=== PATIENT | female | born 1985 | race Caucasian/White ===

== ENCOUNTER 2022-05-31 08:02 | Emergency (ER) | payer OTHER, SELFPAY ==
--- NOTE | 2022-05-31 08:09 | ED.URI ---
HPI - URI/Sore Throat General Stated Complaint: sore throat Source: patient, RN notes reviewed and old records reviewed Mode of arrival: ambulatory Limitations: no limitations History of Present Illness HPI Narrative: 36 year old female who presents to [facility] care with complaints of sore throat, sinus congestion with green drainage, nausea without vomiting, some productive cough, and headache since yesterday. Patient reports that her children have been ill with strep and most recently youngest child tested positive for strep 2 days ago.. Patient reports that she has had COVID immunizations and also flu vaccine.Patient reports no fevers, chills or sweats, denies any body aches. Patient has been taking Becky for sinus congestion and drainage. MD elicited complaint: sore throat and nasal congestion Pertinent past history: sinusitis and seasonal allergies Onset (ago): day(s) (day 2 of symptoms) Consistency: constant Severity: mild Pain scale (0-10): 3 Description of mucous: green Able to tolerate fluids by mouth: Yes Treatments prior to arrival: other (becky) Related Data Home Medications Medication Instructions Recorded Confirmed Becky 180 mg DAILY 05/31/22 05/31/22 cyclosporine 0.05 % eye drops in a 1 drp BID 05/31/22 05/31/22 dropperette (Restasis) Allergies Allergy/AdvReac Type Severity Reaction Status Date / Time amoxicillin Allergy Rash Verified 05/31/22 08:20 Review of Systems Review of Systems: CONSTITUTIONAL: Denies malaise, chills, sweats, or fever. EYES: Denies visual changes, redness, or discharge. ENT: Reports rhinorrhea, congestion, sinus pain,no otalgia positive for sore throat. CARDIOVASCULAR: Denies chest pain, palpitations, or edema. RESPIRATORY: Reports occasional productive cough.? Denies dyspnea. GASTROINTESTINAL: Denies abdominal pain,positive for nausea,no vomiting, diarrhea SKIN: Denies rash or itching. MUSCULOSKELETAL: Denies myalgia. NEUROLOGIC: Reports mild headache . All systems reviewed & are unremarkable except as noted in HPI and below PMFSH Past Medical History Medical History (Updated 05/31/22 @ 08:40 by Holly Bales NP) Dry eyes Seasonal allergies Sinusitis Surgical History Surgical History (Updated 05/31/22 @ 08:27 by Holly Bales NP) No history of previous surgery Social History Social History (Updated 05/31/22 @ 08:27 by Holly Bales NP) Smoking status: Never smoker Alcohol intake: current Alcohol use details: rare social Substance use type: does not use Living arrangements: with family Gender identity (if verbalized by the patient): Female Comments At time of signature, agree with nursing past medical, surgical, social and family history. There is no relevant family history pertinent to the presenting complaint Exam Narrative: GENERAL: Well-appearing, well-nourished, and in no acute distress. HEAD: Normocephalic EYES: PERRLA, conjunctivae clear ENT: Nares clear, turbinates edematous and erythematous, clear to light green discharge. Mucous membranes moist. TM pearly osman with dull light reflex bilaterally; no tragal tenderness. Oropharynx erythematous without lesions. Tonsils not enlarged and without exudate, no drooling, no hoarseness, no trismus, uvula midline. NECK: Supple. No lymphadenopathy CHEST: Clear to auscultation, breath sounds equal. No wheezing, rhonchi, rales, or stridor. No respiratory distress, speaks in full sentences.cough SAO2 100% on room air HEART: Regular rate and rhythm. No murmur heard. SKIN: Warm, dry, no rash. NEURO: Alert and oriented x3. PSYCH: Normal mood and affect Course Course Emergency Course: Patient is aware of diagnosis, understands and agrees to treatment plan.? Anticipatory guidance given.? Patient agrees to follow-up as directed and is aware of reasons to seek care at the emergency department. Portions of this record may have been created with voice
[2022-05-31 08:19] VITALS: BP 96/59; PULSE 71; RESP 16; TEMP 36.8; O2SAT 100
== END 2022-05-31 08:39 | disposition home or self-care (01) ==
PROVIDERS: Emergency Provider Registered Nurse; PCP Internal Medicine
DX: J02.9 Acute pharyngitis, unspecified (principal)
CPT/HCPCS: 87081; 87880; 99213; G0463

== ENCOUNTER 2023-11-20 11:19 | Emergency (ER) | payer OTHER, SELFPAY ==
--- NOTE | ~2023-11-20 | XR_ITS ---
EXAMINATION: XR chest 2V 11/20/2023 11:54 INDICATION: Cough and shortness of breath. Covid. PROCEDURE: 2 view chest COMPARISON: No prior studies for comparison. FINDINGS: The lungs are clear. The cardiomediastinal silhouette is within normal limits. There are no pleural effusions. There is no pneumothorax suspected. IMPRESSION: 1: NO ACUTE CARDIOPULMONARY DISEASE. Reviewed, dictated and finalized at location B.
[2023-11-20 11:34] VITALS: BP 109/71; PULSE 71; RESP 16; TEMP 36.6; O2SAT 100
[2023-11-20 11:35] VITALS: BP 109/71; PULSE 71; RESP 16; TEMP 36.6; O2SAT 100
--- NOTE | 2023-11-20 11:37 | ED.URI ---
HPI - URI/Sore Throat General Chief Complaint: Upper Respiratory Infection Stated Complaint: +COVID Time Seen by Provider: 11/20/23 11:37 Source: patient Mode of arrival: ambulatory Limitations: no limitations History of Present Illness HPI Narrative: 38-year-old female presents with complaint of cough, chest congestion, nasal congestion, fatigue, brain fog for 1 week. Tested positive for COVID 5 days ago. Not taking any [id number] medications to treat her symptoms. Patient states she is very tired, has no energy to take care of her children. Concerned that she may have pneumonia due to continued chest congestion. Denies chest pain and shortness of breath. Afebrile. All systems reviewed and negative except as noted above. Related Data Home Medications Medication Instructions Recorded Confirmed cyclosporine 0.05 % eye drops in a 1 drp BID 05/31/22 11/20/23 dropperette (Restasis) cetirizine 10 mg tablet (Zyrtec) 10 mg PO DAILY 11/20/23 11/20/23 Allergies Allergy/AdvReac Type Severity Reaction Status Date / Time amoxicillin Allergy Rash Verified 11/20/23 11:34 Review of Systems Review of Systems: CONSTITUTIONAL: Denies fever, chills, or sweats. Reports fatigue EYES: Denies visual changes, redness, or discharge. ENT: Denies rhinorrhea, congestion, sore throat, or otalgia. CARDIOVASCULAR: Denies chest pain, palpitations, or edema. RESPIRATORY: Reports cough. Denies dyspnea. GASTROINTESTINAL: Denies abdominal pain, nausea, vomiting, or diarrhea. GENITOURINARY: Denies dysuria or hematuria. SKIN: Denies rash or itching. MUSCULOSKELETAL: Denies back pain, joint pain, or myalgia. NEUROLOGIC: Denies headache, numbness, or weakness. Reports brain fog. PSYCHIATRIC: Denies anxiety or depression. All other systems reviewed are negative, except as documented in HPI. [facility] Past Medical History Medical History (Updated 11/20/23 @ 12:26 by Libia Perdomo NP) Dry eyes Seasonal allergies Sinusitis Surgical History Surgical History (Updated 05/31/22 @ 08:27 by Holly Bales NP) No history of previous surgery Social History Social History (Updated 05/31/22 @ 08:27 by Holly L. Amairani, SUPERVIS[employer]TING [employer]ING) Smoking status: Never smoker Alcohol intake: current Alcohol use details: rare social Substance use type: does not use Living arrangements: with family Gender identity (if verbalized by the patient): Female Comments At time of signature, agree with nursing past medical, surgical, social and family history. There is no relevant family history pertinent to the presenting complaint. Exam Narrative: GENERAL: This is a well-nourished, well-developed patient, patient ill-appearing but in no acute distress. HEAD: normocephalic, atraumatic. EYES: PERRL. Sclera clear/white. Vision is grossly intact. EARS: External ears normal, auditory canals clear and without drainage, TMs normal without perforation. Hearing grossly intact. NOSE: External nose normal with moderate congestion, purulent nasal drainage, erythema swelling to bilateral nares THROAT: Mucous membranes moist, posterior pharynx clear. NECK: Neck supple, non-tender without lymphadenopathy, masses or thyromegaly. CARDIOVASCULAR: Regular rate and rhythm without murmurs, gallops, or rubs. RESPIRATORY: Clear to auscultation. Breath sounds equal bilaterally. No wheezes, rales, or rhonchi. SKIN: warm, Dry, intact with no suspicious lesions or rash, good texture and turgor. NEURO: awake, alert, and oriented to person, place and time. There were no obvious focal neurologic abnormalities. EXTREMITIES: No joint tenderness, effusion, or edema noted. Course Course Level of Care: Express Care Visit Vital Signs Vital signs: Vital Signs Temperature 36.6 C 11/20/23 11:34 Pulse Rate 71 11/20/23 11:34 Respiratory Rate 16 11/20/23 11:34 Blood Pressure 109/71 11/20/23 11:34 Pulse Oximetry 100 11/20/23 11:34 Temperature 36
== END 2023-11-20 11:37 | disposition home or self-care (01) ==
PROVIDERS: Emergency Provider Nurse Practitioner Family; PCP Internal Medicine
DX: J01.90 Acute sinusitis, unspecified (principal); Z86.16 Personal history of COVID-19
CPT/HCPCS: 71046; 99213; G0463

== ENCOUNTER 2023-12-19 07:51 | Outpatient (CLI) | payer OTHER, SELFPAY ==
[2023-12-19 09:03] LABS: Alanine Aminotransferase 22 U/L (6-35); Albumin Level 4.6 g/dL (3.5-5.1); Alkaline Phosphatase 41 U/L (38-126); Anion Gap 8 mmol/L (4-12); Aspartate Amino Transferase 33 U/L (14-36); Bilirubin,Total 0.5 mg/dL (0.2-1.3); Blood Urea Nitrogen 13 mg/dL (7-17); Calcium 8.6 mg/dL (8.4-10.2); Carbon Dioxide 26 mmol/L (22-30); Chloride 102 mmol/L (98-107); Cholesterol 191 mg/dL (0-200); Estimated Glomerular Filt Rate > 60; Glucose 90 mg/dL (65-110); HDL Direct 61 mg/dL; Potassium 3.5 mmol/L (3.4-5.0); Sodium 136 mmol/L (137-145); Triglycerides 65 mg/dL (<150)
[2023-12-19 09:14] LABS: LDL Cholesterol Direct 101 mg/dL
[2023-12-19 10:45] LABS: Hepatitis B Surface Anti Res Negative
== END 2023-12-19 07:52 | disposition home or self-care (01) ==
PROVIDERS: PCP Internal Medicine; Visit Provider Internal Medicine
DX: Z00.00 Encounter for general adult medical examination without abnormal findings (principal); Z13.0 Encounter for screening for diseases of the blood and blood-forming organs and certain disorders involving the immune mechanism; Z13.1 Encounter for screening for diabetes mellitus; Z13.220 Encounter for screening for lipoid disorders; Z13.29 Encounter for screening for other suspected endocrine disorder; Z13.228 Encounter for screening for other metabolic disorders
CPT/HCPCS: 36415; 80053; 80061; 86706

== ENCOUNTER 2024-04-15 16:01 | Emergency (ER) | payer OTHER, SELFPAY ==
[2024-04-15 16:08] VITALS: BP 107/84; PULSE 65; RESP 16; TEMP 36.5; O2SAT 100
--- NOTE | 2024-04-15 16:31 | ED.EAR ---
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 She thought it may help to get some ear plugs, but this provided no relief. She has no URI symptoms or drainage from the ear. She is due to see an ENT specialist at the end of May, but her symptoms are causing her much distress. Related Data Home Medications ?Medication ?Instructions ?Recorded ?Confirmed ?Last Taken ?Type cyclosporine 0.05 % eye drops in a 1 drp EACH EYE BID 05/31/22 04/15/24 Unknown History dropperette (Restasis) cetirizine 10 mg tablet (Zyrtec) 10 mg PO DAILY 11/20/23 11/20/23 Unknown History Allergies Allergy/AdvReac Type Severity Reaction Status Date / Time amoxicillin Allergy Rash Verified 04/15/24 16:15 Review of Systems Review of Systems: CONSTITUTIONAL: Denies body aches, fever, chills, or sweats. EYES: Denies visual changes, redness, or discharge. ENT: Denies rhinorrhea, congestion, sore throat, or otalgia.+ tinnitus, loud sounds in the left ear CARDIOVASCULAR: Denies chest pain, palpitations, or edema. RESPIRATORY: Denies cough or dyspnea. GASTROINTESTINAL: Denies abdominal pain, nausea, vomiting, or diarrhea. GENITOURINARY: Denies dysuria or hematuria. SKIN: Denies rash, itching, or wounds. MUSCULOSKELETAL: Denies back pain, joint pain, or myalgia. NEUROLOGIC: Denies headache, numbness, tingling, or weakness. PSYCH: Denies depression or anxiety. [facility] Past Medical History Medical History Dry eyes Sinusitis Seasonal allergies Surgical History Surgical History No history of previous surgery Social History Social History Smoking status: Never smoker Alcohol intake: current Alcohol use details: rare social Substance use type: does not use Living arrangements: with family Gender identity (if verbalized by the patient): Female Comments At time of signature, I have reviewed and agree with nursing past medical, surgical, social and family history unless otherwise noted. Please see nursing chart for further information. There is no relevant family history pertinent to the presenting complaint Exam Narrative: GENERAL: Well-appearing, well-nourished, and in no acute distress. HEAD: Normocephalic, atraumatic. EYES: EOMI. No redness or drainage. Conjunctivae normal. ENT: Mucous membranes pink and moist. Nares clear. No rhinorrhea. Mild bilateral serous effusions with no evidence of bacterial infection. NECK: Normal AROM. Supple. No lymphadenopathy. CHEST: No respiratory distress. EXTREMITIES: Normal range of motion. No edema. SKIN: Warm, dry, no rash. Capillary refill normal. Normal skin turgor. NEURO: No focal deficits. Alert and oriented x3. Gait steady. PSYCH: Normal affect. No signs of depression or anxiety. Course Course Level of Care: Express Care Visit Vital Signs Vital signs: Vital Signs Temperature 97.7 F 04/15/24 16:08 Pulse Rate 65 04/15/24 16:08 Respiratory Rate 16 04/15/24 16:08 Blood Pressure 107/84 04/15/24 16:08 Pulse Oximetry 100 04/15/24 16:08 Temperature 97.7 F 04/15/24 16:08 Pulse Rate 65 04/15/24 16:08 Respiratory Rate 16 04/15/24 16:08 Blood Pressure 107/84 04/15/24 16:08 Pulse Oximetry 100 04/15/24 16:08 Reviewed Medical Decision Making MDM Narrative Medical decision making narrative: Patient will try some Flonase and prednisone to see if this helps with her symptoms. She will keep her appointment in May to follow-up with specialist. Anticipatory guidance given. Differential Diagnosis Differential Diagnosis: Otitis media, otitis externa, ruptured TM, serous otitis, cerumen impaction, tinnitus Vital Signs Vital Signs: Vital Signs Temperature 97.7 F 04/15/24 16:08 Pulse Rate 65 04/15/24 16:08 Respiratory Rate 16 04/15/24 16:08 Blood Pressure 107/84 04/15/24 16:08 Pulse Oximetry 100 04/15/24 16:08 Temperature 97.7 F 04/15/24 16:08 Pulse Rate 65 04/15/24 16:08 Respiratory Rate 16 04/15/24 16:08 Blood Pressure 107/84 04/15/24 16:08 Pulse Oximetry 100 04/15/24 16:08 Critical Care Time Critical Care Time Critical Care Time: No Discharge Plan Discharge Clinical Impression: Acute serous otitis media, bilateral Patient Disposition: Home, Self-Care Condition: Stable Instructions: Fluid In The Ear (Serous Otitis Media) (ED) Additional Instructions: Please start some Flonase in take the prednisone as directed. Follow-up with ENT as previously scheduled. Your blood pressure was elevated above 120/80 today at Urgent Care. This puts you above the threshold for follow up. Please schedule a followup visit with your personal physician as soon as possible, for further evaluation and treatment. Even blood pressure exceeding 120/80 may indicate pre-hypertension. Patient Language: Kazakh Prescriptions: New prednisone 20 mg tablet 20 mg PO DAILY 5 Days Qty: 5 0RF No Action cetirizine [Zyrtec] 10 mg Tablet 10 mg PO DAILY cyclosporine [Restasis] 0.05 % dropperette 1 drp EACH EYE BID Follow-up/Referrals: PHYSICIAN,PARTITION MAKING MACHINE OPERATOR [Primary Care Provider] - Time of Disposition: 16:38
== END 2024-04-15 16:41 | disposition home or self-care (01) ==
PROVIDERS: Emergency Provider Nurse Practitioner
DX: H65.03 Acute serous otitis media, bilateral (principal)
CPT/HCPCS: 99213; G0463

== ENCOUNTER 2024-04-22 09:19 | Emergency (ER) | payer OTHER, SELFPAY ==
[2024-04-22 10:05] VITALS: BP 99/87; PULSE 70; RESP 16; TEMP 36.9; O2SAT 100
--- NOTE | 2024-04-22 10:37 | ED_ITS ---
HPI - URI/Sore Throat General Chief Complaint: Upper Respiratory Infection Stated Complaint: FLU SYMPTOMS Time Seen by Provider: 04/22/24 10:37 Source: patient, RN notes reviewed and old records reviewed Mode of arrival: ambulatory Limitations: no limitations History of Present Illness HPI Narrative: 38-year-old female presents to the [facility] with flu-like symptoms that started yesterday. Patient reports joint aches, fatigue, body ache and cough as well as headache. Has taken Tylenol and Advil for aches and pains. Denies taking any other medications. Treatments prior to arrival: acetaminophen and ibuprofen Related Data Home Medications ?Medication ?Instructions ?Recorded ?Confirmed ?Last Taken ?Type cyclosporine 0.05 % eye drops in a 1 drp EACH EYE BID 05/31/22 04/22/24 Unknown History dropperette (Restasis) cetirizine 10 mg tablet (Zyrtec) 10 mg PO DAILY 11/20/23 04/22/24 Unknown History Allergies Allergy/AdvReac Type Severity Reaction Status Date / Time amoxicillin Allergy Rash Verified 04/22/24 10:01 Review of Systems Review of Systems: All systems reviewed & are unremarkable except as noted in HPI and below Constitutional: Constitutional: Reports as per HPI, Reports body ache(s), Reports fatigue, Reports fever(s) and Reports headache(s) ENT: Reports system reviewed and no additional complaints, except as documented Cardiovascular: Cardiovascular: Reports no additional cardiovascular complaints, Denies chest pain and Denies dyspnea Respiratory: Respiratory: Reports as per HPI, Denies chest congestion, Reports cough and Denies dyspnea Musculoskeletal: Musculoskeletal: Reports no additional musculoskeletal complaints Integumentary/Breasts: Skin/Breast: Reports system reviewed and no additional complaints, except as docu PMFSH Past Medical History Medical History Dry eyes Sinusitis Seasonal allergies Surgical History Surgical History No history of previous surgery Social History Social History Smoking status: Never smoker Alcohol intake: current Alcohol use details: rare social Substance use type: does not use Living arrangements: with family Gender identity (if verbalized by the patient): Female Comments At the time of my signature, I reviewed and agree with the nursing past medical, surgical, social, and family history. There is no relevant family history pertinent to the patient complaint. Exam Const: General: cooperative, healthy appearing, no acute distress, well developed, alert, tired appearing, uncomfortable and well nourished Nutritional Appearance: well nourished Orientation/consciousness: patient oriented x3 Limitations: no limitations HENMT: Head: normal to inspection Ears: hearing grossly normal bilaterally, external ears normal, TM's normal bilaterally, EAC's normal, mastoids normal and no periauricular adenopathy Mouth: Yes Normal oral and palatal mucosa present, Yes lip normal, Yes tongue normal and Yes moist mucous membranes Throat: posterior oropharynx normal, uvula midline and no uvular edema Eyes: General: appearance normal, both eyes and all related structures Alignment and Position: alignment normal Neck: Neck: normal visual inspection, full ROM, no lymphadenopathy and no meningeal signs Chest: Chest palpation & inspection: normal inspection of the chest Resp: Effort & Inspection: normal respiratory effort and able to speak in complete sentences Auscultation: clear to auscultation bilaterally, no crackles, no rales, no rhonchi and no wheezes Cardio: Rate: regular rate Skin: General skin exam: normal color and no rashes or lesions noted Neuro: General: patient oriented x3, gait normal, moves all extremities and no meningeal signs Cognition (Neuro): normal cognition Speech: normal speech Gait exam (Neuro): Normal gait present Extrem: General: normal to inspection, full ROM, capillary refill normal and normal gait Psych: Appearance: grossly normal and well kempt Mental Status: mental status grossly normal Speech and movement: Normal speech and movement present and Clear speech present Affect: normal affect Attitude: cooperative Course Course Level of Care: Express Care Visit Vital Signs Vital signs: Vital Signs Temperature 98.4 F 04/22/24 10:05 Pulse Rate 70 04/22/24 10:05 Respiratory Rate 16 04/22/24 10:05 Blood Pressure 99/87 L 04/22/24 10:05 Pulse Oximetry 100 04/22/24 10:05 Temperature 98.4 F 04/22/24 10:05 Pulse Rate 70 04/22/24 10:05 Respiratory Rate 16 04/22/24 10:05 Blood Pressure 99/87 L 04/22/24 10:05 Pulse Oximetry 100 04/22/24 10:05 Reviewed MDM - URI/Sore Throat MDM Narrative Medical decision making narrative: Patient sitting in exam room. Nontoxic, vitals stable. Patient presents with 1 day history of flu-like symptoms Patient's flu and COVID negative. Offered a chest x-ray, declined at this time, clear lung sounds were noted on exam Discussed [id number] treatments, signs and symptoms to return and signs and symptoms go the emergency room which patient verbalized understanding Discharge instructions reviewed with patient, as well as provided in writing per nursing staff. The instructions also include specific and strict return/GO TO THE ER as well as f/u information. All questions have been answered, and the patient deny any further questions with discharge and discharge plan. Some parts of this dictation were generated by voice recognition software and may contain typographical and/or grammatical inaccuracies. Differential Diagnosis Differential diagnosis: Likely upper respiratory infection, otitis media, sinusitis, viral infection and influenza Lab Data Labs: Lab Results 04/22/24 Range/Units 09:42 POC Influenza A Ag Negative (Negative) POC Influenza B Ag Negative (Negative) POC SARS CoV-2 Ag Negative (Negative) Reviewed Critical Care Time Critical Care Time Critical Care Time: No Discharge Plan Discharge Clinical Impression: Influenza-like illness Upper respiratory infection Qualifiers: URI type: unspecified viral URI Qualified Code(s): J06.9 - Acute upper respiratory infection, unspecified Patient Disposition: Home, Self-Care Condition: Stable Instructions: Antibiotic Form, Upper Respiratory Infection (ED), Viral Syndrome (ED) Additional Instructions: Your rapid COVID test were negative Your rapid flu test was negative Your symptoms are likely due to a viral illness, which is not treated with antibiotics. Typically viral infections last 7-10 days, can linger for couple of weeks. It is very important to treat your symptoms. Drink plenty of water, Gatorade, Pedialyte, ice pops or Jell-O. -Alternate Tylenol and Motrin per package directions for fever or pain. You can alternate every 4 hours -Antihistamine medication such as Zyrtec/Claritin/Becky during the day can help improve symptoms. -doing daily nasal irrigations can help relieve pressure your sinuses. Things like a Neti pot -Use Flonase twice a day for 5 days then daily to help reduce the inflammation and dry up your sinuses. -You can also use Mucinex. Be sure to drink plenty of water with this medication at least 8 ounces with every dose and it is important to drink 8 to 10 glasses of water per day. Water is a natural decongestant -Eat and drink things that are easy to swallow, like tea or soup, or popsicles. -Oral rinses such as: Salt water gargles and/or may use topical anesthetic (eg. Chloraseptic spray) or lozenges to relieve dryness or throat pain). -Frequent hand washing or hand ssds mk 2 advanced operator is one of the best ways to prevent spread of infection. -Using a vaporizer or humidifier at night will also help thin secretions and help with coughing up phlegm. -Follow up with primary care provider in 7-10 days if condition is not improving - For new or worsening symptoms go directly to the nearest ER Patient Language: Khmer Prescriptions: No Action cetirizine [Zyrtec] 10 mg Tablet 10 mg PO DAILY cyclosporine [Restasis] 0.05 % dropperette 1 drp EACH EYE BID Follow-up/Referrals: UNKNOWN,DOCTOR [Primary Care Provider] - Stand Alone Forms: Work/School Release IP Time of Disposition: 10:54
[2024-04-22 13:20] LABS: EDCOVIDSCREEN Negative (Negative); EDINFLUASCREEN Negative (Negative); EDINFLUBSCREEN Negative (Negative)
== END 2024-04-22 11:02 | disposition home or self-care (01) ==
PROVIDERS: Emergency Provider Nurse Practitioner
DX: J11.1 Influenza due to unidentified influenza virus with other respiratory manifestations (principal); Z20.822 Contact with and (suspected) exposure to COVID-19
CPT/HCPCS: 87426; 87804; 99212; G0463

== ENCOUNTER 2024-08-20 13:49 | Outpatient (CLI) | payer OTHER, SELFPAY ==
--- NOTE | ~2024-08-20 | CT_ITS ---
Noncontrast CT scan of the internal auditory canal/mastoids Clinical history: Left tinnitus TECHNIQUE: Axial noncontrast imaging of the bilateral mastoids/temporal bones was performed. Coronal reformatted images were constructed. Dose reduction technique was used on this scan by utilizing auto mated exposure control and iterative reconstruction technique. The dose-length product (DLP) was 201 .35 mGy-cm. FINDINGS: No fracture identified. Mastoid air cells are clear bilaterally. External auditory canals a re unremarkable bilaterally. Middle ear cavities are unremarkable. Middle ear ossicles are unremarkab le. No distinct abnormality of the inner ears are identified in either side. No abnormal mass lesion is noted. IMPRESSION: No significant abnormality identified. Reviewed, dictated and finalized at location .
== END 2024-08-20 13:50 | disposition home or self-care (01) ==
LOC: MICIMG 13:50
PROVIDERS: PCP Otolaryngology; Visit Provider Otolaryngology
DX: H93.12 Tinnitus, left ear (principal)
CPT/HCPCS: 70480

== ENCOUNTER 2024-12-02 08:08 | Outpatient (CLI) | payer OTHER, SELFPAY ==
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
[2024-12-02 09:07] LABS: Hematocrit 42.5 % (37.0-47.0); Hemoglobin 13.9 g/dL (12.0-15.0); Mean Corpuscular HGB Conc 32.7 g/dl (32-36); Mean Corpuscular Hemoglobin 29.2 pg (26-34); Mean Corpuscular Volume 89.3 fl (80-100); Platelet Count Result 255 k/mm3 (150-375); Red Blood Count 4.76 M/mm3 (4.2-5.4); White Blood Count 6.8 K/mm3 (4.5-10.0)
[2024-12-02 09:31] LABS: Alanine Aminotransferase 22 U/L (6-35); Albumin Level 4.6 g/dL (3.5-5.1); Alkaline Phosphatase 56 U/L (38-126); Anion Gap 10 mmol/L (4-12); Aspartate Amino Transferase 38 U/L (14-36); Bilirubin,Total 0.6 mg/dL (0.2-1.3); Blood Urea Nitrogen 9 mg/dL (7-17); Calcium 9.0 mg/dL (8.4-10.2); Carbon Dioxide 26 mmol/L (22-30); Chloride 100 mmol/L (98-107); Cholesterol 225 mg/dL (0-200); Estimated Glomerular Filt Rate > 60; Glucose 89 mg/dL (65-110); HDL Direct 49 mg/dL; Potassium 3.9 mmol/L (3.4-5.0); Sodium 136 mmol/L (137-145); Total Protein 8.1 g/dL (6.3-8.2); Triglycerides 119 mg/dL (<150)
[2024-12-02 10:06] LABS: Thyroid Stimulating Hormone 1.470 uIU/mL (0.465-4.680)
== END 2024-12-02 08:09 | disposition home or self-care (01) ==
LOC: ANHLAB 08:09
PROVIDERS: PCP Family Medicine; Visit Provider Family Medicine
DX: E78.5 Hyperlipidemia, unspecified (principal); F90.9 Attention-deficit hyperactivity disorder, unspecified type; Z79.899 Other long term (current) drug therapy
CPT/HCPCS: 36415; 80053; 80061; 84443; 85027